=== PATIENT | female | born 1960 | race Caucasian/White ===

== ENCOUNTER 2017-01-28 12:19 | Emergency (ER) | payer MEDICAID ==
[~2017-01-28] VITALS: Ht 157.5 cm; Wt 64.5 kg
[~2017-01-28 12:19] MED LIST: INSU100V27 SC
[2017-01-28 12:21] VITALS: Ht 157.5 cm; Wt 64.5 kg
[2017-01-28] MEDS ORDERED: ALBU8.5H3 INH (14:40)
[2017-01-28] MEDS ORDERED: LEVO750T25 PO (14:40)
--- NOTE | 2017-01-28 14:45 | ERD ---
ER Documentation Chief Complaint Date/Time DATE: 01/28/17 TIME: 14:42 Chief Complaint CAME IN VIA INTAKE DUE TO COUGH HPI This is a 56-year-old female presents to the ER with a productive cough for the last 4 weeks. Per patient cough is worsening. It is worse at night. Patient has urine seen chills and fatigue. Patient tried azithromycin however did not work. Patient denies any fevers. She denies any chest pain or shortness of breath. Patient states that she has a lot of chest congestion. She denies any sore throat, ear pain, body pain. She has also tried [id number] cough medications which have not worked. ROS 12 point review of systems was done, all negative except per HPI. Medications Home Meds Active Scripts Albuterol Sulfate* (Proair HFA*) 8.5 Gm Hfa.aer.ad, 2 PUFF INH Q4, #1 INHALER Prov:ARCELIA FARFAN 01/28/17 Levofloxacin* (Levaquin*) 750 Mg Tablet, 750 MG PO DAILY for 5 Days, TAB Prov:ARCELIA FARFAN 01/28/17 Reported Medications Insulin Lisp Protam/Lisp Human* (Humalog Mix (75/25)*) 100 Units/Ml Susp, 40 SC AM, EA 08/30/14 Allergies Allergies: Coded Allergies: No Known Drug Allergies (Verified Allergy, Unknown, 08/30/14) PMhx/Soc History of Surgery: Yes ( Hystorectomy) Anesthesia Reaction: No Hx Neurological Disorder: No Hx Respiratory Disorders: No Hx Cardiac Disorders: No Hx Psychiatric Problems: No Hx Miscellaneous Medical Probl: Yes (Diabetes) Hx Alcohol Use: No Hx Substance Use: No Hx Tobacco Use: No Physical Exam Vitals Vital Signs Date Time Temp Pulse Resp B/P Pulse Ox O2 Delivery O2 Flow Rate FiO2 01/28/17 12:21 98.0 96 18 132/76 97 Physical Exam GENERAL: The patient is well-developed, well-nourished, in no acute distress. NECK: Cervical spine is non tender with no step off. Supple, no nuchal rigidity HEENT: Atraumatic. Pupils equal, round and reactive to light. Extraocular muscles are grossly intact. Conjunctivae pink, no discharge. Bilateral tympanic membranes are clear with no evidence of erythema, effusion or dulling of the light reflex. Tonsilar erythema with no exudates or uvular deviation. Clear rhinorrhea. RESPIRATORY: Clear to auscultation bilaterally. There are no rales, wheezes or rhonchi. HEART: Regular rate and rhythm. No murmurs, clicks, rubs or gallops. EXTREMITIES: No clubbing or cyanosis. Full range of motion. Grossly neurovascularly intact. NEUROLOGIC: Alert and oriented. Cranial nerves II through XII are intact. SKIN: There is no rash. The skin is warm and dry. Procedures/MDM Differential diagnosis includes but is not limited to; Viral URI, allergic rhinitis, bronchitis, pertussis,pneumonia. She'll be treated for possible bacterial bronchitis. She has had cough for 4 weeks and states that cough is worsening.Given patients length and severity of symptoms she will be treated with Levaquin. Patients physical examination is benign, she is not hypoxic or in any respiratory distress. At this time patient is stable for outpatient therapy. Plan was discussed with patient they understand and agree. Patient needs to follow up with PCP in 1-2 days or return to ER sooner if symptoms worsen. Departure Diagnosis: Primary Impression: Bronchitis Condition: Stable Patient Instructions: Bronchitis, Antiobiotic Treatment (Adult) Additional Instructions: Call your primary care doctor TOMORROW for an appointment during the next 1-2 days.See the doctor sooner or return here if your condition worsens before your appointment time. ARCELIA FARFAN Jan 28, 2017 14:45
== END 2017-01-28 14:41 | disposition home or self-care (01) ==
LOC: E/R 12:19
DX: J20.9 Acute bronchitis, unspecified (principal); E11.9 Type 2 diabetes mellitus without complications; Z79.4 Long term (current) use of insulin
CPT/HCPCS: 99283

== ENCOUNTER 2017-09-20 12:04 | Emergency (ER) | payer MEDICAID ==
[~2017-09-20] VITALS: Ht 157.5 cm; Wt 63.8 kg
[~2017-09-20 12:04] MED LIST changes: +ALBU8.5H3 INH; +LEVO750T25 PO
[2017-09-20 12:07] VITALS: Ht 157.5 cm; Wt 63.8 kg
[2017-09-20 16:26] VITALS: BP 155/83; PULSE 87; RESP 20
[2017-09-20] MEDS ORDERED: PROPARACAINE 0.5% 15 ML OPH BOTH EYES ONE (16:30)
[2017-09-20] MEDS ORDERED: TETRACAINE 0.5% 4 ML OPH BOTH EYES ONE (17:00)
--- NOTE | 2017-09-20 17:00 | ERD ---
ER Documentation Chief Complaint Chief Complaint c/o blurry vision x2 days Hx: DM HPI 57-year-old female with a history of diabetes with diabetic retinopathy presenting to the ER for blurry vision. She states that in July 2017 she was diagnosed with bilateral "bleeding" in her retinas at that time. She states that she had injections in both eyes then 1 month later in August she had laser done to her eyes as well. Since then she has had almost complete vision loss in her left eye. She has light perception and motion perception, however she is unable to see anything else with her left eye. She has had some vision loss in her right eye but not as bad as the left. However for the past week and most notably over the past 3 days, she has noticed worsening vision in her right eye. She has an appointment with [facility] retina clinic October 11, 2017, however she cannot wait until then. She states that she went to the eye clinic 3 days ago to see if she would be able to get in with an fiberglass tube molder earlier, however they told her to just go to the ER. Denies any ocular pain, headache, dizziness, chest pain, shortness of breath. ROS All systems reviewed and are negative except as per history of present illness. Medications Home Meds Active Scripts Albuterol Sulfate* (Proair HFA*) 8.5 Gm Hfa.aer.ad, 2 PUFF INH Q4, #1 INHALER Prov:ARCELIA FARFAN 01/28/17 Levofloxacin* (Levaquin*) 750 Mg Tablet, 750 MG PO DAILY for 5 Days, TAB Prov:ARCELIA FARFAN 01/28/17 Reported Medications Insulin Lisp Protam/Lisp Human* (Humalog Mix (75/25)*) 100 Units/Ml Susp, 40 SC AM, EA 08/30/14 Allergies Allergies: Coded Allergies: No Known Drug Allergies (Verified Allergy, Unknown, 08/30/14) PMhx/Soc History of Surgery: Yes ( Hystorectomy) Anesthesia Reaction: No Hx Neurological Disorder: No Hx Respiratory Disorders: No Hx Cardiac Disorders: No Hx Psychiatric Problems: No Hx Miscellaneous Medical Probl: Yes (Diabetes) Hx Alcohol Use: No Hx Substance Use: No Hx Tobacco Use: No Smoking Status: Never smoker FmHx Family History: No diabetes Physical Exam Vitals Vital Signs Date Time Temp Pulse Resp B/P Pulse Ox O2 Delivery O2 Flow Rate FiO2 09/20/17 16:26 87 20 155/83 99 Room Air 09/20/17 12:07 97.0 90 18 208/92 98 Physical Exam Const: Ill-appearing, no apparent distress Head: Atraumatic Eyes: Normal Conjunctiva, PERRLA, EOMI. Anterior chambers are normal bilaterally. Visual acuity: OS 20/100, OD 20/200 OU20/70. IOP: OD19 OS18. All gomez intact. Funduscopic exam was attempted but very limited. Unable to visualize the retina clearly bilaterally. ENT: Normal External Ears, Nose and Mouth. Neck: Full range of motion. No meningismus. Resp: Clear to auscultation bilaterally Cardio: Regular rate and rhythm, no murmurs Abd: Soft, non tender, non distended. Normal bowel sounds Skin: No petechiae or rashes Back: No midline or flank tenderness Ext: No cyanosis, or edema Neur: Awake and alert, no facial asymmetry. Cranial nerves intact. Normal speech, strength and sensations intact in all 4 extremities. Normal gait. Psych: Normal Mood and Affect Results 24 hrs Current Medications Medications (Trade) Dose Ordered Sig/Rey Route PRN Reason Start Time Stop Time Status Last Admin Dose Admin Proparacaine HCl (Alcaine 0.5%) 1 drop ONCE ONCE BOTH EYES 09/20/17 16:30 09/20/17 16:39 DC Tetracaine HCl (Tetracaine 0.5% Steri-Unit Cassandra) 1 drop ONCE ONCE BOTH EYES 09/20/17 17:00 09/20/17 17:01 DC 09/20/17 16:47 Procedures/MDM Patient is presenting with worsening visual loss in her right eye. I suspect that she has diabetic retinopathy that was complicated by retinal hemorrhages which is why she required laser treatment to her eyes. It seems like her symptoms are progressing. I have a low suspicion for CR VO, CR AO, glaucoma, retinal detachment, vitreous hemorrhage, carotid dissection or CVA. I do suspect she has worsening diabetic retinopathy with possible new retinal hemorrhages. Patient will need evaluation by orthopedics but does not need to be immediately transferred from ED to ED. I recommended she follow-up with her fiberglass tube molder tomorrow. I stressed to her that I wanted her seen within 24 hours by an fiberglass tube molder. If she has any worsening symptoms, she was advised to go directly to the ER. Departure Diagnosis: Primary Impression: Vision loss, bilateral Condition: Stable Patient Instructions: Blurred Vision Additional Instructions: Go to your fiberglass tube molder first thing tomorrow morning. I would like you to be seen within 1 day. Your vision is at risk and it is very important that you see your fiberglass tube molder within the next 24 hours. If you are unable to see an fiberglass tube molder and your symptoms are worsening, go to the ER for evaluation DESHAWN CANO MD Sep 20, 2017 17:00
== END 2017-09-20 17:07 | disposition home or self-care (01) ==
LOC: E/R 12:04
DX: H54.3 Unqualified visual loss, both eyes (principal); E11.9 Type 2 diabetes mellitus without complications; Z79.4 Long term (current) use of insulin
CPT/HCPCS: Z7610 ×2; 99283